=== PATIENT | male | born 1955 | race Caucasian/White ===

== ENCOUNTER 2018-03-10 17:51 | Observation (INO) ==
[2018-03-11] MEDS ORDERED: Acetaminophen 500 MG Tablet PO PRN (02:17)
== END 2018-03-11 03:57 | disposition left against medical advice (07) ==
LOC: NEPHCDU 17:51 → NEDDLT 17:51
PROVIDERS: ADMIT Internal Medicine Interventional Cardiology; ATTEND Internal Medicine Interventional Cardiology